=== PATIENT | female | born 1965 | race Caucasian/White ===

== ENCOUNTER 2025-03-07 06:56 | Emergency (ER) | payer OTHER, SELFPAY ==
[2025-03-07 06:56] VITALS: BMI 23.3
[2025-03-07 06:57] VITALS: BP 129/91
[2025-03-07 07:45] VITALS: BP 101/71
[2025-03-07 07:55] LABS: Hematocrit 38.9 % (37.0-47.0); Hemoglobin 13.7 g/dL (12.0-16.0); Mean Corp Hgb Conc. 35.2 g/dL (33.0-37.0); Mean Corpuscular Hgb 32.2 pg (27.0-31.0); Mean Corpuscular Volume 91.3 fL (81.0-99.0); Platelet Count 247 10^3/uL (130-400); Red Blood Cell Count 4.26 10^6/uL (4.20-5.40); Red Cell Dist. Width 11.9 % (11.5-14.5); White Blood Cell Count 3.3 10^3/uL (4.8-10.8)
[2025-03-07 08:00] VITALS: BP 106/76
[2025-03-07 08:15] LABS: ALT (SGPT) 17 U/L (0-35); AST (SGOT) 18 U/L (14-36); Albumin 4.3 g/dl (3.5-5.0); Alkaline Phosphatase 54 U/L (38-126); Blood Urea Nitrogen 14 mg/dl (7-17); Calcium 9.9 mg/dl (8.4-10.2); Carbon Dioxide 25 mmol/L (22-30); Chloride 108 mmol/L (98-107); Estimated Creatinine Clearance 70 ml/min; Glucose 88 mg/dl (70-99); Magnesium 2.1 mg/dl (1.6-2.3); Potassium 4.4 mmol/L (3.5-5.1); Sodium 140 mmol/L (135-145); Total Bilirubin 0.8 mg/dl (0.2-1.3); Total Protein 6.5 g/dl (6.3-8.2); eGFR > 60.00
[2025-03-07 08:39] LABS: TSH 4.23 uIU/ml (0.47-4.68)
--- NOTE | 2025-03-07 08:45 | ED.GENMED ---
History of Present Illness
General
Chief Complaint: Heart Rate Problem
Time Seen by Provider: 03/07/25 07:13
History of Present Illness
History of Present Illness:
59-year-old female presents to the emergency department for evaluation of frequent heart palpitations and dizziness occurring over the course of the weekend, she has been monitoring her heart rate with an Apple Watch and was concerned that it was
reading as 2% atrial fibrillation. She states she had a history of A-fib provoked by general anesthesia during a tonsillectomy as a child but no other history of this. Otherwise healthy with no cardiovascular disease. Currently feels well, denies
chest pain or shortness of breath
Past History
Past History
ED Past Medical History: Psychiatric (Depression)
ED Past Surgical History: Gynecological (Hysterectomy) and Tonsilectomy
Social History
Tobacco: Non-smoker
Alcohol: None
Drug: None
Personal:
Living: with family
Employment: Employed (psychologist)
Family History
Family History: Negative Diabetes or Early CAD
Review of Systems
Review of Systems
Allergies reviewed?: Yes
All Other Systems: ROS reviewed and negative except as documented in HPI and ROS
Phy Exam
Physical Exam
Physical Exam:
GEN: Well appearing, NAD, WDWN
HEENT: Oral mucosa moist, no scleral icterus
Cardiac: Regular rate and rhythm, no murmurs
Lung: No respiratory distress, no tachypnea, lungs clear to auscultation bilaterally
MSK: No gross deformity or injuries
Skin: Good color, no pallor or jaundice, no rashes
Neuro: AO x3, moves all extremities freely
Psych: Calm, cooperative
Course
Orders/Labs/Results
Orders:
Orders
03/07/25 06:59
Electrocardiogram (*1) Urgent
Reason for Study: Atrial Fibrillation
EKG- Treatment ONCE
03/07/25 07:49
Complete Blood Count/No Diff Urgent
Comprehensive Metabolic Panel Urgent
Magnesium Urgent
TSH Urgent
Abnormal Lab Results
03/07/25
07:49
WBC 3.3 L 10^3/uL
(4.8-10.8)
MCH 32.2 H pg
(27.0-31.0)
Chloride 108 H mmol/L
(98-107)
03/07/25 07:49
03/07/25 07:49
Vital Signs
Initial and Last Documented VS:
Initial Vital Signs
Temp Pulse Resp BP Pulse Ox
98.4 F 103 18 129/91 99
03/07/25 06:57 03/07/25 06:57 03/07/25 06:57 03/07/25 06:57 03/07/25 06:57
Last Documented Vital Signs
Temp Pulse Resp BP Pulse Ox
98.4 F 82 16 106/76 100
03/07/25 06:57 03/07/25 08:15 03/07/25 08:15 03/07/25 08:00 03/07/25 08:15
MDM/Problems Addressed
MDM/Problems Addressed:
Cardiac monitoring in the ED is unremarkable, labs reassuring particularly negative TSH. Coordinated outpatient follow-up with cardiology for Holter monitor and office follow-up.
*Critical Care Note
Total Time (30-74mins, 75-104mins- exclusive of procedures): Not Applicable
ED Attending Note
-
Portions of this chart may have been created with voice recognition software.� Occasional wrong word or��sound alike� substitutions may have occurred due to the inherent limitations of voice recognition software.
Discharge Plan
Departure
Patient Disposition: Home (Routine Discharge)
Date of Disposition: 03/07/25
Time of Disposition: 08:45
Patient with high blood pressure during this ER visit?: No
Discharge Problem:
Heart palpitations
Instructions: Palpitations (DC)
Prescriptions:
No Action
trazodone 100 MG tablet
50 mg PO HS
Patient Comments:
pt states 'Not on medication'
multivitamin [Daily Multiple] 1 EACH tablet
1 ea PO DAILY
venlafaxine 75 MG capsule,extended release 24hr
75 mg PO DAILY
Patient Comments:
Pt takes total 225mg Effexor every AM
venlafaxine [Effexor XR] 150 MG capsule,extended release 24hr
150 mg PO DAILY
Patient Comments:
Pt takes total 225mg Effexor every AM
Referrals:
Remi Berg DO [Active] -
Kiet Baum MD [Family Provider] -
Activity Restrictions/Additional Instructions:
Cardiology office will contact you regarding office follow up and outpatient Holter monitor
Interventions
Interventions:
*Risk Screen - Suicide Last Done: 03/07/25 06:57
*General Assessment Last Done: 03/07/25 06:57
*Neglect/Abuse Screening Last Done: 03/07/25 06:57
*ED- Fall Risk Assessment Last Done: 03/07/25 06:57
*ED COVID-19 Vaccine History Last Done: 03/07/25 06:57
*Nursing Disposition Last Done: 03/07/25 08:54
ED- Cardiac Assessment Last Done: 03/07/25 07:53
ED- Pulmonary Assessment Last Done: 03/07/25 07:53
Discharge Date and Time
Print Language: LIBERIAN
== END 2025-03-07 09:03 | disposition home or self-care (01) ==
LOC: EMR 06:56
PROVIDERS: Physician Assistant; EMERGENCY PHYSICIAN Emergency Medicine; FAMILY PHYSICIAN Family Medicine
DX: R00.2 Palpitations (principal); R42 Dizziness and giddiness
CPT/HCPCS: 99284; 80053; 83735; 84443; 85027; 93005